=== PATIENT | male | born 1990 | race Caucasian/White ===

== ENCOUNTER 2018-12-22 14:09 | Emergency (ER) | payer MEDICAID ==
[~2018-12-22] VITALS: Ht 185.4 cm; Wt 78.0 kg
--- NOTE | 2018-12-22 14:37 | NUR ---
ED Nurse Note: Pt came in from work due to being bitten by a dog at lunch time. Bite on R flank, redness noted, no active bleeding. Office Assistant confirmed that the dog is up to date with vaccinations. Pain 3/10 mary. AOx4, VSS. Will cont to monitor.
[2018-12-22 14:38] VITALS: BP 118/75
[2018-12-22] MEDS ORDERED: Bacitracin Oint UD TOPIC ONE (14:45)
[2018-12-22] MEDS ORDERED: Tetanus/Diptheria/Pertussis IM ONE (14:45)
[2018-12-22] MEDS ORDERED: Augmentin 875mg Tab ORAL ONE (14:45)
[2018-12-22] MEDS ORDERED: BACITRACIN15 GM TOPIC (14:58)
[2018-12-22] MEDS ORDERED: IBUPROFEN600 MG ORAL (14:58)
[2018-12-22] MEDS ORDERED: AUGMENTIN 875-1 EAC1 ORAL (14:58)
[2018-12-22 15:02] VITALS: BP 118/75
--- NOTE | 2018-12-22 15:02 | NUR ---
ER DISCHARGE NOTE: Patient is cleared to be discharged per ERMD, pt is aox4, on room air, with stable vital signs. pt was given dc and prescription instructions, pt was able to verbalize understanding, pt id band removed. pt is able to ambulate with steady gait. pt took all belongings.
--- NOTE | 2018-12-22 20:32 | Emergency Room Report ---
History of Present Illness General Chief Complaint: Animal Bite Source: Patient Present Illness HPI Patient is a 28-year-old male presenting for dog bite. 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 He states that he later got in contact with the bale opener who states that the dog is up-to-date with immunizations. Pain is a 5 out of 10 dull ache and does not radiate. He denies any other symptoms. Last tetanus shot unknown Allergies: Coded Allergies: No Known Allergies (Unverified , 12/22/18) Patient History Past Medical History: see triage record Pertinent Family History: none Reviewed Nursing Documentation: PMH: Agreed; PSxH: Agreed Nursing Documentation-PMH Past Medical History: No Stated History Review of Systems All Other Systems: negative except mentioned in HPI Physical Exam Vital Signs Date Time Temp Pulse Resp B/P (MAP) Pulse Ox O2 Delivery O2 Flow Rate FiO2 12/22/18 14:17 98.1 71 18 118/75 (89) 97 Room Air Sp02 EP Interpretation: reviewed, normal General Appearance: no apparent distress, alert, GCS 15, non-toxic Head: normocephalic, atraumatic Gastrointestinal: normal bowel sounds, soft, non-distended, no guarding, no rebound Musculoskeletal: back normal, gait/station normal, normal range of motion, non- tender Neurologic: alert, oriented x3, responsive, motor strength/tone normal, sensory intact, speech normal Psychiatric: judgement/insight normal, memory normal, mood/affect normal, no suicidal/homicidal ideation Skin: other - abrasions to R abdomen Medical Decision Making PA Attestation Dr. Hermosillo is my supervising physician. Patient management was discussed with my supervising physician Diagnostic Impression: Primary Impression: Dog bite Qualified Codes: W54.0XXA - Bitten by dog, initial encounter ER Course Patient is a 28-year-old male presenting for dog bite. Differential diagnosis considered but not limited to: Laceration, abrasion, cellulitis, tetanus, among others Physical exam: Afebrile. No apparent distress There are 5 linear abrasions to the right abdomen. No active bleeding. Tender to palpation The area is cleaned and bacitracin applied. Patient is given first dose of antibiotics here as well as tetanus shot. He is discharged home with prescription for Augmentin. ER precautions given Last Vital Signs Date Time Temp Pulse Resp B/P (MAP) Pulse Ox O2 Delivery O2 Flow Rate FiO2 12/22/18 15:02 98.1 87 18 118/75 97 Room Air Status: improved Disposition: HOME, SELF-CARE Condition: Improved Scripts Bacitracin (Bacitracin) 28.4 Gm Oint...g. 1 APPLIC TOPIC THREE TIMES A DAY, #28 GM Prov: GLENYS LARA.AAtiya 12/22/18 Amoxicillin/Potassium Clav 875-125* (AUGMENTIN 875-125 TABLET*) 1 Each Tablet 1 TAB ORAL TWICE A DAY, #10 TAB Prov: GLENYS LARA.AAtiya 12/22/18 Ibuprofen* (MOTRIN*) 600 Mg Tablet 600 MG ORAL Q8H PRN for For Pain, #30 TAB 0 Refills Prov: GLENYS LARA P.A. 12/22/18 Patient Instructions: Animal Bite Additional Instructions: I discussed my findings with the patient. All questions and concerns have been answered. Treatment and medication compliance have been addressed. I advised the patient that they need to follow up with Primary doctor in 3-5 days. Return to ED if symptoms worsen, new symptoms arise, or if needed for any reason. Patient verbalized understanding of discharge instructions. GLENYS LARA Dec 22, 2018 20:32
== END 2018-12-22 15:02 | disposition home or self-care (01) ==
LOC: EMR 14:37
DX: S30.811A Abrasion of abdominal wall, initial encounter (principal); W54.0XXA Bitten by dog, initial encounter; Z23 Encounter for immunization
CPT/HCPCS: 90471; 90715; 99283

== ENCOUNTER 2019-05-05 18:58 | Emergency (ER) | payer MEDICAID, OTHER ==
[~2019-05-05] VITALS: Ht 188 cm; Wt 77.1 kg
[~2019-05-05 18:58] MED LIST: AUGMENTIN 875-1 EAC1 ORAL; BACITRACIN15 GM TOPIC; IBUPROFEN600 MG ORAL
[2019-05-05 19:10] VITALS: BP 153/81
--- NOTE | 2019-05-05 19:10 | NUR ---
ED Nurse Note: pt presents to ED c/o 09/25 R shoulder pain since Sunday. pt states that he was at work lifting up garbage cans and felt he pulled something. he reports experiencing this in the past on the other shoulder. pt went to see his PCP who told him to come to the ED. pt has been taking ibuprofen for the pain with some relief of symptoms. the pain is exacerbated by movement and lifting/ holding heavy objects
--- NOTE | 2019-05-05 19:37 | NUR ---
shoulder sling applied
--- NOTE | 2019-05-05 19:43 | Emergency Room Report ---
History of Present Illness General Chief Complaint: Upper Extremity Injury Source: Patient Present Illness HPI 28 YO male Pt. presents to the ED c/o 10/25 in severity localized pain and tenderness to the left shoulder area x 3 days. 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 Pt. is right hand dominant. He denies appreciable trauma or fall otherwise. Pt. reports he was already evaluated by his PCP and given a work note, however his work instructed him to come to the ED for evaluation. Pt. denies suspicion for fracture, and denies previous injury to this extremity. Denies numbness tingling or loss of sensation or gross motor movements of the extremities, incontinence of bowel or bladder. Denies CP, Palpitations, LOC, AMS, dizziness, Changes in Vision, weakness or a sudden severe headache. Allergies: Coded Allergies: No Known Allergies (Unverified , 12/22/18) Patient History Past Medical History: see triage record Past Surgical History: none Pertinent Family History: none Reviewed Nursing Documentation: PMH: Agreed; PSxH: Agreed Nursing Documentation-PMH Past Medical History: No Stated History Review of Systems All Other Systems: negative except mentioned in HPI Physical Exam Vital Signs Date Time Temp Pulse Resp B/P (MAP) Pulse Ox O2 Delivery O2 Flow Rate FiO2 05/05/19 18:59 98.2 80 16 153/81 (105) 98 Room Air Sp02 EP Interpretation: reviewed, normal General Appearance: no apparent distress, alert, GCS 15, non-toxic Head: normocephalic, atraumatic Eyes: bilateral eye normal inspection, bilateral eye PERRL ENT: hearing grossly normal, normal voice Neck: full range of motion Respiratory: lungs clear, normal breath sounds, speaking full sentences Cardiovascular #1: regular rate, rhythm, normal capillary refill Musculoskeletal: back normal, gait/station normal, normal range of motion, tender - lateral left shoulder ttp/ deltoid ttp, no localized bony ttp, no step- off, no cracking/clicking with ROM testing. FROM with pain at the 90* point with arm raise. Neurologic: alert, oriented x3, responsive, motor strength/tone normal, sensory intact, speech normal, grossly normal Psychiatric: judgement/insight normal Lymphatic: no adenopathy Medical Decision Making PA Attestation Dr. Duarte is my supervising Physician whom patient management has been discussed with. Diagnostic Impression: Primary Impression: Sprain of shoulder, left Qualified Codes: S43.402A - Unspecified sprain of left shoulder joint, initial encounter ER Course 28 YO male Pt. presents to the ED c/o 10/25 in severity localized pain and tenderness to the left shoulder area x 3 days. 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 Pt. is right hand dominant. He denies appreciable trauma or fall otherwise. Pt. reports he was already evaluated by his PCP and given a work note, however his work instructed him to come to the ED for evaluation. Pt. denies suspicion for fracture, and denies previous injury to this extremity. Denies numbness tingling or loss of sensation or gross motor movements of the extremities, incontinence of bowel or bladder. Denies CP, Palpitations, LOC, AMS, dizziness, Changes in Vision, weakness or a sudden severe headache. Ddx considered but are not limited to Fracture, dislocation, contusion, Sprain/ Strain/Spasm, rotator cuff injury, labral tear just to name a few. Vital signs: are WNL, pt. is afebrile H&PE are most consistent with Soft tissue sprain injury- PE does not suggest suspicion for fx or d/l. ORDERS: - None required at this time. ED INTERVENTIONS: -- Left arm Sling applied by operating room technician. Pt. remains neurovascularly intact. -I do not identify an emergent condition at this time. With current presentation , pt. is stable for close outpatient follow up and conservative treatment. D/ w pt. to return promptly to ED with worsening or new symptoms.- Pt. verbalizes' understanding and agreement with proposed treatment plan. DISCHARGE: At this time pt. is stable for d/c to home. Will provide printed patient care instructions, and any necessary prescriptions. Care plan and follow up instructions have been discussed with the patient prior to discharge. Last Vital Signs Date Time Temp Pulse Resp B/P (MAP) Pulse Ox O2 Delivery O2 Flow Rate FiO2 05/05/19 19:10 98.2 16 153/81 98 Room Air 05/05/19 18:59 80 Scripts Naproxen* (NAPROXEN*) 500 Mg Tablet 500 MG ORAL BID, #14 TAB 0 Refills Prov: Starla Moore 05/05/19 Starla Moore May 05, 2019 19:43
[2019-05-05] MEDS ORDERED: NAPROXEN500 M2 ORAL (19:45)
[2019-05-05 19:58] VITALS: BP 149/76
--- NOTE | 2019-05-05 19:58 | NUR ---
ER DISCHARGE NOTE: Patient is cleared to be discharged per ERPA, pt is aox4, on room air, with stable vital signs. pt was given dc and prescription instructions, as well as worker's injury paperwork and a return to work note. pt was able to verbalize understanding, pt id band removed without complications. pt is able to ambulate with steady gait. pt took all belongings.
== END 2019-05-05 19:58 | disposition home or self-care (01) ==
LOC: EMR 19:30
DX: S43.402A Unspecified sprain of left shoulder joint, initial encounter (principal); X50.0XXA Overexertion from strenuous movement or load, initial encounter; Y92.9 Unspecified place or not applicable; Y99.0 Civilian activity done for income or pay
CPT/HCPCS: 99282